=== PATIENT | male | born 1955 | race Caucasian/White ===

== ENCOUNTER → 2016-04-24 | Outpatient (CLI) | payer OTHER ==
[~2016-04-24] MED LIST: CEPH500C PO; CLIN300C10 PO; MELO15TA4 PO; MILK300C PO; NAPR550T PO; NRV/5 PO; PRT/40 PO; TURM1CAP4 PO
[2016-04-24 09:34] LABS: BASO % 0.8 %; BASO ABS # 0.04 K/uL (0-0.2); COMPLETE YES; EOS % 5.4 %; HEMATOCRIT 42.8 % (42-52); IG% 0.2 %; LYMPH % 39.8 %; LYMPH ABS # 2.06 K/uL (1.2-3.4); MEAN CELL VOLUME 93.9 fL (80-100); MEAN CORPUSCULAR HEMOGLOBIN 31.8 pg (25-34); MEAN CORPUSCULAR HGB CONC 33.9 g/dl (32-36); MONO % 10.3 %; NEUT % 43.5 %; PLATELET COUNT 196 K/uL (130-400); RED BLOOD COUNT 4.56 M/uL (4.7-6.1); WHITE BLOOD COUNT 5.17 K/uL (4.8-10.8)
[2016-04-24 09:53] LABS: ALT/SGPT 182 U/L (12-78); BLOOD UREA NITROGEN 15 mg/dl (7-18); BUN/CREATININE RATIO 15.2 (10-20); CALCIUM 9.1 mg/dl (8.5-10.1); CARBON DIOXIDE 23 mmol/L (21-32); CHLORIDE 107 mmol/L (98-107); GLUCOSE 101 mg/dl (70-99); POTASSIUM 4.4 mmol/L (3.5-5.1); SODIUM 140 mmol/L (136-145)
[2016-04-24 09:57] LABS: ALKALINE PHOSPHATASE 61 U/L (45-117); AST/SGOT 147 U/L (15-37); FERRITIN 843.4 ng/ml (8.0-388.0); TOTAL IRON BINDING CAPACITY 321 mcg/dl (250-450)
== END | disposition home or self-care (01) ==
LOC: C.LAB 06:51
PROVIDERS: ATTEND Family Medicine
DX: R53.83 Other fatigue (principal); M25.50 Pain in unspecified joint

== ENCOUNTER → 2016-04-26 | Outpatient (CLI) | payer OTHER | END | disposition home or self-care (01) | LOC: C.PATHSPEC 13:46 | PROVIDERS: ATTEND Dermatology | DX: L57.0 Actinic keratosis (principal); L82.1 Other seborrheic keratosis; L81.4 Other melanin hyperpigmentation ==

== ENCOUNTER → 2016-09-04 | Outpatient (CLI) | payer OTHER ==
[~2016-09-04] MED LIST changes: +PANT40TA2 PO; -PRT/40 PO
== END | disposition home or self-care (01) ==
LOC: C.LABSPEC 15:58
PROVIDERS: ATTEND Dermatology
DX: B35.1 Tinea unguium (principal)

== ENCOUNTER → 2016-10-21 | Outpatient (CLI) | payer OTHER ==
[~2016-10-21] MED LIST changes: -PANT40TA2 PO; +PRT/40 PO
--- NOTE | 2016-10-21 10:55 | DIAGNOSTIC IMAGING REPORT ---
(BARIUM SWALLOW) ESOPHAGUS CLINICAL HISTORY: Gastroesophageal reflux disease. COMPARISON STUDY: None. FLUOROSCOPY TIME: 1.6 minutes. 23 images. FINDINGS: The patient swallowed barium without difficulty. Mild esophageal dysmotility. Esophagus is normal in course and caliber. No hiatus hernia. No gastroesophageal reflux demonstrated during the examination. The contours of the hypopharynx are within normal limits. The barium tablet passed without difficulty. IMPRESSION: Mild esophageal dysmotility. No gastroesophageal reflux. Electronically signed by: Daniel Burkett M.D. 10/21/2016 10:54 AM Dictated Date/Time: 10/21/2016 10:52 AM
== END | disposition home or self-care (01) ==
LOC: C.RAD 09:10
PROVIDERS: ATTEND Family Medicine
DX: K21.9 Gastro-esophageal reflux disease without esophagitis (principal); K22.4 Dyskinesia of esophagus

== ENCOUNTER 2016-12-10 06:37 | Emergency (ER) | payer OTHER ==
[~2016-12-10] VITALS: Ht 182.9 cm; Wt 101.4 kg
[~2016-12-10 06:37] MED LIST changes: -CEPH500C PO; -MELO15TA4 PO; -MILK300C PO; -NRV/5 PO; -PRT/40 PO; -TURM1CAP4 PO
[2016-12-10 06:39] VITALS: BP 139/84; PULSE 78; TEMP 37; O2SAT 95; Ht 182.9 cm; Wt 101.4 kg
--- NOTE | 2016-12-10 06:58 | EMERGENCY ROOM VISIT NOTE ---
History Report prepared by Cady: Kat Cutler Under the Supervision of: Dr. Valdemar Nickerson M.D. First contact with patient: 06:46 Chief Complaint: HEAD PAIN Stated Complaint: SORE SPOT ON HEAD History of Present Illness The patient is a 61 year old male who presents to the Emergency Room with complaints of persistent head soreness that began around 1600 yesterday. He currently rates his discomfort as a 7/10 in severity. The patient states that a few nights ago while in bed he felt something on his head. He states that it took awhile to get the insect off his head, but he states that he finally did and threw it against the wall. The patient states that yesterday around 1600, he felt the area become sore. He states that the soreness spread and felt like a bruise. The patient states that he was concerned if it was a tick, noting that he has a history of Lyme Disease. He additionally notes that he follows with dermatology for a previous skin cancer. Source of History: patient Onset: 1600 yesterday Position: head Symptom Intensity: 7/10 Quality: other (sore) Timing: other (persistent) Review of Systems All systems have been listed, reviewed, and are negative other than those previously mentioned. Please see Additional Medical History Sheet. Past Medical & Surgical Medical Problems: (1) Hypertension (2) Skin problem Family History Cancer Diabetes mellitus Heart disease Hypertension Stroke Social History Smoking Status: Former Smoker Smokeless Tobacco Use: No Alcohol Use: occasionally Marital Status: Housing Status: lives with significant other Occupation Status: employed Current/Historical Medications Scheduled Amlodipine Besylate (Amlodipine Besylate), 5 MG PO DAILY Cephalexin Monohydrate (Keflex), 500 MG PO TID Meloxicam (Meloxicam), 15 MG PO DAILY Milk Thistle (Silybum Marianum (Milk Thistle), 1 CAP PO DAILY Pantoprazole (Pantoprazole Sodium), 40 MG PO DAILY Turmeric (Curcuma Longa) (Turmeric), 500 MG PO DAILY Allergies Coded Allergies: Sulfa Drugs (Unverified Allergy, Unknown, RASH, 12/10/16) Physical Exam Vital Signs Date Time Temp Pulse Resp B/P (MAP) Pulse Ox O2 Delivery O2 Flow Rate FiO2 12/10/16 06:39 37.0 78 20 139/84 95 Room Air Physical Exam GENERAL: Patient awake, alert, oriented x 3, patient appears to be in no distress. Patient follows commands. Patient does not appear toxic. Patient is adequately hydrated and well-nourished. SKIN: No erythema, pallor, cyanosis or rash HEENT: Normal head, pupils equal, reactive to light and accommodation. Patient does have an approximately 3 cm nodule at the base of the occiput which is old and nontender. No other cervical adenopathy. The top of the head has minimal erythema and slight swelling without any other signs of an insect bite, no body parts seen. Ears normal. Oral cavity and posterior pharynx appear normal. Neck: No neck vein distention. LUNGS: Clear to auscultation. No wheezes, no rales, no rhonchi. HEART: No murmurs. No gallops. No rubs NEUROLOGIC: Cranial nerves II-XII within normal limits. No gross motor sensory function deficits. Medical Decision & Procedures ED Course 0647: Past medical records reviewed. The patient was evaluated in room B2. A complete history and physical examination was performed. I discussed the exam findings with him and I discussed the treatment plan. He verbalized complete understanding and agreement. He is ready for discharge shortly. Medical Decision Nurses notes reviewed. Medical history sheet reviewed. Differential diagnosis includes but is not limited to: insect bite, spider vs tick bite, cellulitis. Examination is most consistent with an insect bite with some surrounding inflammation and possible cellulitis. There were no signs of any retained insect parts. This does not appear consistent with a bite from a tick or Lyme disease. More likely this is from a spider bite. Medication Reconcilliation Current Medication List: was personally reviewed by me Blood Pressure Screening Patient's blood pressure: Elevated blood pressure Blood pressure disposition: Elevated BP felt to be situational, Did not require urgent referral Impression Primary Impression: Cellulitis Scribe Attestation The scribe's documentation has been prepared under my direction and personally reviewed by me in its entirety. I confirm that the note above accurately reflects all work, treatment, procedures, and medical decision making performed by me. Departure Information Dispostion Home / Self-Care Prescriptions Cephalexin Monohydrate (Keflex) 500 Mg Cap 500 MG PO TID, #30 CAP Prov: Valdemar Nickerson M.D. 12/10/16 Referrals No Doctor, Assigned (PCP) Ruddy Choi M.D. Forms HOME CARE DOCUMENTATION FORM, IMPORTANT VISIT INFORMATION Patient Instructions My [facility] Additional Instructions 500 mg of Keflex 3 times a day for 10 days. Recheck with your family physician or here in 10 days if symptoms have not completely resolved.
[2016-12-10] MEDS ORDERED: CEPH500C PO (07:00)
[2016-12-10] MEDS ORDERED: NRV/5 PO (07:03)
[2016-12-10] MEDS ORDERED: MELO15TA4 PO (07:03)
[2016-12-10] MEDS ORDERED: PRT/40 PO (07:03)
[2016-12-10] MEDS ORDERED: TURM1CAP4 PO (07:04)
[2016-12-10] MEDS ORDERED: MILK300C PO (07:04)
== END 2016-12-10 07:17 | disposition home or self-care (01) ==
LOC: C.EDB 06:38
DX: L03.811 Cellulitis of head [any part, except face] (principal); I10 Essential (primary) hypertension; Z85.828 Personal history of other malignant neoplasm of skin; Z87.891 Personal history of nicotine dependence; Z83.3 Family history of diabetes mellitus; Z82.49 Family history of ischemic heart disease and other diseases of the circulatory system; Z82.3 Family history of stroke

== ENCOUNTER → 2017-10-23 | Outpatient (CLI) | payer OTHER ==
[~2017-10-23] MED LIST changes: -CLIN300C10 PO; +MELO-83 PO; +MILK300C PO; -NAPR550T PO; +NRV/5 PO; +PANT40TA2 PO; +TURM1CAP4 PO
[2017-10-23 10:06] LABS: BASO % 0.9 %; BASO ABS # 0.04 K/uL (0-0.2); EOS ABS # 0.23 K/uL (0-0.5); HEMATOCRIT 41.9 % (42-52); HEMOGLOBIN 14.3 g/dL (14.0-18.0); LYMPH % 43.5 %; LYMPH ABS # 2.02 K/uL (1.2-3.4); MEAN CELL VOLUME 93.1 fL (80-100); MEAN CORPUSCULAR HEMOGLOBIN 31.8 pg (25-34); MEAN CORPUSCULAR HGB CONC 34.1 g/dl (32-36); MEAN PLATELET VOLUME 9.9 fL (7.4-10.4); MONO % 7.1 %; MONO ABS # 0.33 K/uL (0.11-0.59); NEUT % 43.5 %; NEUT ABS # 2.02 K/uL (1.4-6.5); PLATELET COUNT 202 K/uL (130-400); RED CELL DISTRIBUTION WIDTH CV 13.1 % (11.5-14.5); RED CELL DISTRIBUTION WIDTH SD 44.8 fL (36.4-46.3); WHITE BLOOD COUNT 4.64 K/uL (4.8-10.8)
[2017-10-23 10:30] LABS: HEMOGLOBIN A1C 5.5 % (4.5-5.6)
[2017-10-23 10:32] LABS: ALBUMIN 3.8 gm/dl (3.4-5.0); ALKALINE PHOSPHATASE 51 U/L (45-117); ALT/SGPT 131 U/L (12-78); AST/SGOT 80 U/L (15-37); BLOOD UREA NITROGEN 13 mg/dl (7-18); CALCIUM 9.3 mg/dl (8.5-10.1); CARBON DIOXIDE 25 mmol/L (21-32); CHOLESTEROL 270 mg/dl (0-200); CREATININE 1.05 mg/dl (0.60-1.40); GLUCOSE 104 mg/dl (70-99); LDL CHOLESTEROL CALCULATED 185 mg/dl; POTASSIUM 4.4 mmol/L (3.5-5.1); SODIUM 138 mmol/L (136-145); TOTAL PROTEIN 7.4 gm/dl (6.4-8.2); TRANSFERRIN 254 mg/dl (200-360); URIC ACID 8.8 mg/dl (2.6-7.2)
== END | disposition home or self-care (01) ==
LOC: C.LAB 08:25
PROVIDERS: ATTEND Family Medicine
DX: R73.09 Other abnormal glucose (principal); E55.9 Vitamin D deficiency, unspecified; D51.9 Vitamin B12 deficiency anemia, unspecified; E78.9 Disorder of lipoprotein metabolism, unspecified; R53.83 Other fatigue